=== PATIENT | female | born 1990 | race Caucasian/White ===

== ENCOUNTER → 2018-03-24 | Outpatient (CLI) | payer OTHER | LOC: COL.LAB 10:16 | DX: N91.2 Amenorrhea, unspecified (principal) ==

== ENCOUNTER 2018-11-08 06:40 | Inpatient (IN) | payer MEDICAID ==
[2018-11-08] VITALS (29 sets, daily range): BP systolic 98–141; BP diastolic 53–86; PULSE 60–99; TEMP 97.2–98.2
[~2018-11-08] VITALS: Ht 322.6 cm; Wt 93.6 kg
--- NOTE | 2018-11-08 07:15 | NUR ---
PATIENT TO LR 4 FOR INDUCTION. PATIENT PROVIDED HER OWN GOWN. PATIENT CHANGED INTO GOWN, PATIENT ON EFM, VITALS OBTAINED, PATIENT IS BREATHING THROUGH CONTRACTIONS. IV STARTED, CONSENTS SIGNED. PATIENT DENIES LEAKING OF FLUID, OR BLEEDING. THIS NURSE IS ANSWERING AND READING OVER PLAN
[2018-11-08 08:41] LABS: BASO # 0.1 (0.0-0.2); BASO % 0.4 % (0.0-2.0); EOS # 0.2 (0.0-0.7); EOS % 1.5 % (0-4.0); GRAN # 11.1 (1.4-6.5); GRAN % 78.5 % (42.2-75.2); HEMATOCRIT 37.4 % (37.0-47.0); HEMOGLOBIN 12.4 g/dl (12.5-16.0); LYMPH # 1.9 (1.2-3.4); LYMPH % 13.5 % (20.0-51.0); MEAN CELL VOLUME 87 fl (80.0-100.0); MEAN CORPUSCULAR HEMOGLOBIN 29 pg (27.0-31.0); MEAN CORPUSCULAR HGB CONC 33 g/dl (33.0-37.0); MEAN PLATELET VOLUME 11.7 fl (7.4-10.4); MONO # 0.8 (0.1-0.6); MONO % 5.5 % (1.7-9.3); PLATELET COUNT 232 K/mm3 (130-400); RED BLOOD COUNT 4.29 M/mm3 (4.10-5.30)
[2018-11-08] MEDS ORDERED: PROAIR HFA0.09 MG/AC IH (09:12)
[2018-11-08] MEDS ORDERED: QVAR REDIHALE10.6 GM IH (09:13)
--- NOTE | 2018-11-08 10:20 | NUR ---
THIS NURSE ENTERED ROOM AT PATIENT STATED SHE JUST TOOK OWN INAHLER. PATIENT INSTRUCTED TO NOT USE HOME MEDICATION. PATIENT STATED SHE UNDERSTOOD. JELLO PROVIDED TO PATIENT FOR ITCHY THROAT. MOTHER OF PATIENT AND FATHER OF BABY AT BEDSIDE.
[2018-11-08] MEDS ORDERED: PERCOCET 325 MG1 TA2 PO (16:56)
[2018-11-08] MEDS ORDERED: MOTRIN 800800 MG/TAB PO (16:56)
[2018-11-09 00:30] VITALS: BP 100/60; PULSE 82; TEMP 98.2
[2018-11-09 08:25] VITALS: BP 86/40; PULSE 66; TEMP 97.6
--- NOTE | 2018-11-09 09:00 | NUR ---
notified of patients blood pressure of 86/40, patient not symptomatic, and fundus firm/bleeding WNL. No new orders at this time.
--- NOTE | 2018-11-09 09:44 | NUR ---
Initial visit attempt; Family resting, Power Generation Engineer left card of congratulations for the of their daughter and information regarding the availability of [facility] at [facility].
[2018-11-09 11:55] VITALS: BP 102/65; PULSE 72; TEMP 97.8
[2018-11-09 20:15] VITALS: BP 111/61; PULSE 77; TEMP 98
[2018-11-10 08:30] VITALS: BP 110/62; PULSE 68; TEMP 97.9
[2018-11-10 16:30] VITALS: BP 116/68; PULSE 81; TEMP 98.3
== END 2018-11-10 17:00 | disposition home or self-care (01) | DRG 807 ==
LOC: LDR 06:40 → OB 07:03
PROVIDERS: ADMIT Obstetrics & Gynecology
PROC: 10E0XZZ Delivery of Products of Conception, External Approach (ICD-10-PCS; principal; 2018-11-08)
PROC: 0KQM0ZZ Repair Perineum Muscle, Open Approach (ICD-10-PCS; 2018-11-08)
DX: O48.0 Post-term pregnancy (principal); Z37.0 Single live birth; Z3A.41 41 weeks gestation of pregnancy; O99.02 Anemia complicating childbirth; O99.52 Diseases of the respiratory system complicating childbirth; J45.909 Unspecified asthma, uncomplicated; O77.0 Labor and delivery complicated by meconium in amniotic fluid; O70.1 Second degree perineal laceration during delivery
CPT/HCPCS: J2405; J2590; J2795; J7120

== ENCOUNTER → 2019-04-04 | Outpatient (CLI) | payer SELFPAY ==
[~2019-04-04] MED LIST: MOTRIN 800800 MG/TAB PO; PERCOCET 325 MG1 TA2 PO; PROAIR HFA0.09 MG/AC IH; QVAR REDIHALE10.6 GM IH
--- NOTE | 2019-04-04 13:44 | NUR ---
Pt, Renata Fairchild, presents for outpatient consult with 4.5 month old baby girl, Violet Doherty, for a evaluation because of low milk supply and latching concerns. They were referred by Dr. Boyer. Violet was born on [birth year] by and weighed 8#3.6oz (3730 gms). Violte was seen for her four month appt and was found to be dropping below the established curve for her weight. Pt is unable to recall Violet's actual weights from the doctors appointments. After a two week reweigh Violet continued to follow the curve but not back to the original line. Today Violet weighs 12#1.1oz (5474 gms). Pt is unable to recall the weight from her most recent weight check other than it was "ll pounds something" last week. Pt states Violet breastfeeds five times daily and is supplemented 4-6oz EBM or 22 calorie formula each feeding. She is pumping after , collecting 45-90ml range. Pt's menstrual cycle returned at 2.5months of age. Violet is sleeping 9-10 hours at night. She also talks about stress being high, all things that decrease milk supply. 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 She breastfeeds bilaterally, on and off the breasts throughout the feedings as a typical 4.5 month old, easily distracted, curious baby would do. After Violet had a weight gain of 1.4oz. She is bottle fed 5.2oz formula for a total intake at this feeding of 6.6oz. Pt advised to try increasing number of feedings per day to six, or increasing bottle intake to 7oz per feeding to help improve overall weight. Also discussed herbal supplements, power pumping and consider having the sublingual frenulum evaluated. POC: Increase number of feedings or intake per feeding. Work on milk supply, and consider tongue tie evaluation. F/U: pt indicates Violet has an appointment with Dr. Boyer next week. requests pt follow up by phone or email after the next weight check and if she has the tongue tie evaluated or treated and another consult can be scheduled to evaluate milk transfer. Pt verbalizes understanding, questions invited and answered.
== END ==
LOC: OLC 13:31
DX: Z39.1 Encounter for care and examination of lactating mother (principal); Z71.89 Other specified counseling